=== PATIENT | male | born 2000 | race Hispanic/Latino ===

== ENCOUNTER 2021-08-15 04:01 | Emergency (ER) | payer MEDICAID, OTHER ==
[~2021-08-15] VITALS: Ht 172.7 cm; Wt 99.8 kg
[2021-08-15] MEDS ORDERED: 0.9%NACL 1000ML 1,000 ML IV ONE (04:30)
[2021-08-15] MEDS ORDERED: METOCLOPRAMIDE 10 MG/2 ML VIAL IVP ONE (04:30)
[2021-08-15] MEDS ORDERED: FAMOTIDINE 20MG VIAL IV ONE (04:30)
[2021-08-15] MEDS ORDERED: PANTOPRAZOLE 40 MG/VIAL IVP ONE (04:30)
[2021-08-15] MEDS ORDERED: ONDANSETRON 4MG INJ IVP ONE (04:30)
[2021-08-15 04:42] LABS: APPEARANCE,URINE Clear (CLEAR); BILIRUBIN,URINE Negative (NEGATIVE); COLOR,URINE Yellow (YELLOW); GLUCOSE, URINE (UA) Negative (NEGATIVE); KETONES,URINE Negative (NEGATIVE); LEUKOCYTE ESTERASE ,URINE Trace (NEGATIVE); NITRATE,URINE Negative (NEGATIVE); OCCULT BLOOD,URINE Negative (NEGATIVE); PROTEIN,URINE POS 2+ mg/dL (NEGATIVE)
[2021-08-15 04:55] LABS: RBC,URINE 0-1 /HPF (0-1)
[2021-08-15 04:56] LABS: BACTERIA,URINE None Seen /HPF (None Seen); MUCUS,URINE Moderate LPF (None Seen); SQUAMOUS EPITHELIAL CELL,UR Moderate /HPF (0-2)
[2021-08-15 05:11] LABS: BASOPHILS % (AUTO) 0.1 % (0.0-5.0); EOSINOPHILS % (AUTO) 0.2 % (0.0-8.0); HEMATOCRIT 47.8 % (42-54); LYMPHOCYTES % (AUTO) 15.2 % (21.0-51.0); MEAN CORPUSCULAR HEMOGLOBIN 28.5 pg (27.0-33.0); MEAN CORPUSCULAR HGB CONC 33.7 g/dL (32.0-36.0); MEAN CORPUSCULAR VOLUME 84.8 fL (79-99); MONOCYTES % (AUTO) 8.7 % (3.0-13.0); NEUTROPHILS % (AUTO) 75.5 % (40.0-77.0); PLATELET COUNT (AUTO) 346 K/uL (130-400); RED BLOOD CELL COUNT(AUTO) 5.64 MIL/uL (4.50-6.20); RED CELL DISTRIBUTION WIDTH 14.8 % (11.0-15.5); WHITE BLOOD COUNT (AUTO) 14.3 K/uL (4.8-10.8)
[2021-08-15 05:20] LABS: POTASSIUM 3.7 mmol/L (3.5-5.1)
[2021-08-15 05:23] LABS: ALBUMIN 4.7 g/dL (3.5-5.0); BILIRUBIN,TOTAL 0.6 mg/dL (0.2-1.0); TOTAL PROTEIN, SERUM 8.7 g/dL (6.0-8.3)
[2021-08-15] MEDS ORDERED: ONDA4TAB10 PO (05:36)
[2021-08-15] MEDS ORDERED: PANT40TA PO (05:36)
[2021-08-15] MEDS ORDERED: METO-296 PO (05:36)
[2021-08-15 05:49] VITALS: BP 118/50
[2021-08-15] MEDS ORDERED: LIDOCAINE HCL 2% VISCOUS 15 ML UDCUP PO ONE (06:00)
[2021-08-15] MEDS ORDERED: MAG/ALUM/SIMETH 30 ML UDCUP PO ONE (06:00)
== END 2021-08-15 06:09 | disposition home or self-care (01) ==
LOC: EDH 04:01
DX: K29.70 Gastritis, unspecified, without bleeding (principal); E86.9 Volume depletion, unspecified; Z79.899 Other long term (current) drug therapy
CPT/HCPCS: 36415; 80053; 81001; 83690; 85025; 93005; 96361; 96374; 96375; 99284; C9113; J2405; J2765; J3490

== ENCOUNTER 2022-11-18 19:41 | Emergency (ER) | payer OTHER ==
[~2022-11-18] VITALS: Ht 172.7 cm; Wt 133.8 kg
[~2022-11-18 19:41] MED LIST: METO-296 PO; ONDA4TAB10 PO; PANT40TA PO
[2022-11-18 19:59] VITALS: BP 128/56
[2022-11-18] MEDS ORDERED: TETRACAINE HCL 0.5% 4 ML OPHTH SOLN ONE (21:04)
[2022-11-18] MEDS ORDERED: ERYT1OIN7 OP (21:14)
[2022-11-18] MEDS ORDERED: NA BORATE/BORIC AC/H2O/NACL 120 ML OPHTH IRRIG SOLN OP SCH (21:30)
[2022-11-18] MEDS ORDERED: ERYTHROMYCIN BASE 0.5% OPHTH OINT 1 GM TUBE OU SCH (21:30)
== END 2022-11-18 21:43 | disposition home or self-care (01) ==
LOC: EDH 19:41
DX: H57.11 Ocular pain, right eye (principal); Z79.899 Other long term (current) drug therapy